=== PATIENT | female | born 1935 | race African-American/Black ===

== ENCOUNTER 2016-11-18 08:57 | Day surgery (SDC) | payer OTHER, MEDICAID ==
[2016-11-18] MEDS ORDERED: TETRACAINE 0.5% OPHTH 1 DOSE AFFEYE ONE ×3 (09:00→11:59)
[2016-11-18] MEDS ORDERED: VIGAMOX 0.5% OPHTH 1 DOSE AFFEYE ONE ×6 (09:05→12:18)
[2016-11-18] MEDS ORDERED: PROLENSA OPHTH 1 DOSE AFFEYE ONE (09:16)
[2016-11-18] MEDS ORDERED: ALPHAGAN-P OPHTH 1 DOSE AFFEYE ONE (09:17)
[2016-11-18] MEDS ORDERED: MYDRIACIL OPHTH 1 DOSE AFFEYE ONE ×3 (09:18→09:20)
[2016-11-18] MEDS ORDERED: CYCLOGYL 1% OPHTH 1 DOSE OP ONE ×3 (09:18→09:20)
[2016-11-18] MEDS ORDERED: AK-DILATE 2.5% OPHTH 1 DOSE OP ONE ×3 (09:18→09:20)
[2016-11-18] MEDS ORDERED: NS 500 ML IV 500 ML IV ONE (09:21)
[2016-11-18] MEDS ORDERED: BETADINE OPHTH SOLN 5% EACHEYE ONE (11:51)
[2016-11-18] MEDS ORDERED: DUOVISC IO ONE (11:59)
[2016-11-18] MEDS ORDERED: BSS OPHTH (PLAIN) 500 ML with VANCOMYCIN HCL 500 MG VIAL 25 MG, ADRENALINE CHL INJ 1 MG IR ONE ×3 (11:59)
[2016-11-18] MEDS ORDERED: ADRENALINE CHL INJ IJ ONE ×2 (11:59→12:02)
[2016-11-18] MEDS ORDERED: XYLOCAINE-MPF 1% IJ ONE (11:59)
[2016-11-18] MEDS ORDERED: VISCOAT 0.5 ML IO ONE ×2 (12:07→12:09)
[2016-11-18 14:16] VITALS: BP 162/75
== END 2016-11-18 12:45 | disposition home or self-care (01) ==
LOC: SURG1 08:57
PROVIDERS: ATTEND Ophthalmology
PROC: 08RK3JZ Replacement of Left Lens with Synthetic Substitute, Percutaneous Approach (ICD-10-PCS; principal; 2016-11-18 14:15)
PROC: 08DK3ZZ Extraction of Left Lens, Percutaneous Approach (ICD-10-PCS; principal; 2016-11-18 14:15)
DX: H25.89 Other age-related cataract (principal)
CPT/HCPCS: 99100; A4217; J0170; J3370

== ENCOUNTER 2016-12-09 08:15 | Day surgery (SDC) | payer OTHER, MEDICAID ==
[2016-12-09] MEDS ORDERED: TETRACAINE 0.5% OPHTH 1 DOSE AFFEYE ONE ×4 (08:45→12:30)
[2016-12-09] MEDS ORDERED: VIGAMOX 0.5% OPHTH 1 DOSE AFFEYE ONE ×5 (08:46→12:44)
[2016-12-09] MEDS ORDERED: PROLENSA OPHTH 1 DOSE AFFEYE ONE (08:57)
[2016-12-09] MEDS ORDERED: ALPHAGAN-P OPHTH 1 DOSE AFFEYE ONE (08:58)
[2016-12-09] MEDS ORDERED: MYDRIACIL OPHTH 1 DOSE AFFEYE ONE ×4 (08:59→09:02)
[2016-12-09] MEDS ORDERED: AK-DILATE 2.5% OPHTH 1 DOSE OP ONE ×4 (08:59→09:02)
[2016-12-09] MEDS ORDERED: CYCLOGYL 1% OPHTH 1 DOSE OP ONE ×4 (08:59→09:02)
[2016-12-09] MEDS ORDERED: NS 500 ML IV 500 ML IV ONE (09:07)
[2016-12-09] MEDS ORDERED: BETADINE OPHTH SOLN 5% EACHEYE ONE (12:08)
[2016-12-09] MEDS ORDERED: DUOVISC IO ONE ×2 (12:14→12:30)
[2016-12-09] MEDS ORDERED: XYLOCAINE-MPF 1% IJ ONE ×2 (12:14→12:30)
[2016-12-09] MEDS ORDERED: ADRENALINE CHL INJ IJ ONE ×2 (12:14→12:30)
[2016-12-09] MEDS ORDERED: BSS OPHTH (PLAIN) 500 ML with VANCOMYCIN HCL 500 MG VIAL 25 MG, ADRENALINE CHL INJ 1 MG IR ONE ×3 (12:15)
[2016-12-09] MEDS ORDERED: KETALAR ONE (12:16)
[2016-12-09 14:45] VITALS: BP 160/90
[2016-12-09] MEDS ORDERED: DIPRIVAN VIAL ONE (15:45)
[2016-12-09] MEDS ORDERED: VERSED ONE (15:45)
== END 2016-12-09 13:10 | disposition home or self-care (01) ==
LOC: SURG1 08:15
PROVIDERS: ATTEND Ophthalmology
PROC: 08DJ3ZZ Extraction of Right Lens, Percutaneous Approach (ICD-10-PCS; principal; 2016-12-09 12:30)
PROC: 08RJ3JZ Replacement of Right Lens with Synthetic Substitute, Percutaneous Approach (ICD-10-PCS; principal; 2016-12-09 12:30)
DX: H25.11 Age-related nuclear cataract, right eye (principal); H25.011 Cortical age-related cataract, right eye; H25.041 Posterior subcapsular polar age-related cataract, right eye
CPT/HCPCS: 99100; A4217; J0170; J2250; J3370; J3490